=== PATIENT | male | born 1980 | race Two or more races ===

== ENCOUNTER → 2019-07-17 | Outpatient (CLI) | payer OTHER ==
[~2019-07-17] VITALS: Ht 170.2 cm; Wt 85.7 kg
== END | disposition home or self-care (01) ==
LOC: Rad HDHVI 08:11
PROVIDERS: ATTEND Internal Medicine Cardiovascular Disease
DX: I20.0 Unstable angina (principal); R06.01 Orthopnea; R07.89 Other chest pain
CPT/HCPCS: 78452; 93017; 93306; 96374; A9500